=== PATIENT | female | born 1950 | race Caucasian/White ===

== ENCOUNTER 2016-11-08 11:53 | Emergency (ER) | payer BC, OTHER ==
[~2016-11-08] VITALS: Ht 180.3 cm; Wt 193.7 kg
[2016-11-08 11:53] VITALS: BP 179/88
[2016-11-08] MEDS ORDERED: MECL25CH PO (12:00)
[2016-11-08] MEDS ORDERED: METO50TA2 PO (12:00)
[2016-11-08] MEDS ORDERED: BIAX1TAB PO (12:00)
[2016-11-08] MEDS ORDERED: NORCOTAB PO (15:20)
--- NOTE | 2016-11-09 07:59 | REP ---
Right knee series: Five views. History: Pain. Findings: Five views of the right knee demonstrate an old orthopedic screw in place in the proximal tibia. There is moderate three compartment osteoarthritis with spurring and chondrocalcinosis. There is some diffuse osteopenia. No fracture or other acute bony abnormality is seen. Impression: Three compartment osteoarthritis. Chondrocalcinosis. Orthopedic screw in the proximal tibia. No acute bony abnormality. Signed by Juan Luis Song MD 11/09/2016 08:59 A
== END 2016-11-08 15:50 | disposition home or self-care (01) ==
LOC: M ED 13:01
DX: S83.91XA Sprain of unspecified site of right knee, initial encounter (principal); X58.XXXA Exposure to other specified factors, initial encounter; Y92.9 Unspecified place or not applicable; Y93.9 Activity, unspecified; Y99.9 Unspecified external cause status; M17.11 Unilateral primary osteoarthritis, right knee; M11.261 Other chondrocalcinosis, right knee; I10 Essential (primary) hypertension; Z79.899 Other long term (current) drug therapy; Z88.2 Allergy status to sulfonamides

== ENCOUNTER → 2017-10-23 | Outpatient (REF) | payer BC, OTHER | LOC: M LAB REF 13:45 | DX: N39.0 Urinary tract infection, site not specified (principal) ==

== ENCOUNTER 2017-11-06 23:36 | Emergency (ER) | payer MEDICARE, BC, OTHER ==
[2017-11-07 00:35] LABS: PROTHROMBIN TIME 13.3 SECONDS (12.4-14.5)
[2017-11-07 00:36] LABS: PARTIAL THROMBOPLASTIN TIME 24.7 SECONDS (26.8-37.9)
[2017-11-07 00:46] LABS: ANION GAP 7 MEQ/L (8-16); BLOOD UREA NITROGEN 12 MG/DL (7-18); CALCIUM LEVEL 9.1 MG/DL (8.8-10.2); CARBON DIOXIDE LEVEL 29 MEQ/L (21-32); CHLORIDE LEVEL 103 MEQ/L (98-107); CPK CREATINE PHOSPHOKINASE 30 U/L (26-192); CREATININE FOR GFR 0.81 MG/DL (0.55-1.30); FREE THYROXINE INDEX 3.4 % (1.3-4.8); GLOMERULAR FILTRATION RATE > 60.0 (>45); GLUCOSE, FASTING 163 MG/DL (70-100); POTASSIUM SERUM 3.6 MEQ/L (3.5-5.1); SODIUM LEVEL 139 MEQ/L (136-145); T UPTAKE 34 % (30-39); THYROXINE (T4) 9.9 UG/DL (4.5-12.0); TROPONIN I < 0.02 NG/ML (< 0.10)
[2017-11-07 00:49] LABS: BASO # 0.1 10^3/uL (0.0-0.2); BASO % 0.7 % (0.0-1.0); EOS # 0.2 10^3/uL (0.0-0.50); EOS % 2.4 % (0.0-3.0); HEMATOCRIT 40.7 % (36.0-47.0); HEMOGLOBIN 13.4 g/dl (12.0-15.5); IMMATURE GRANULOCYTE % 0.1 % (0-3.0); LYMPH # 1.8 10^3/uL (1.5-4.5); LYMPH % 27.6 % (24.0-44.0); MEAN CORPUSCULAR HEMOGLOBIN 30.5 pg (27.0-33.0); MEAN CORPUSCULAR HGB CONC 32.9 g/dl (32.0-36.5); MEAN CORPUSCULAR VOLUME 92.7 fl (80.0-96.0); MONO # 0.5 10^3/uL (0.0-0.8); MONO % 7.9 % (0.0-5.0); NEUTROPHILS # 4.1 10^3/uL (1.8-7.7); NEUTROPHILS % 61.3 % (36.0-66.0); PLATELET COUNT, AUTOMATED 208 10^3/uL (150-450); RED BLOOD COUNT 4.39 10^6/uL (4.00-5.40); RED CELL DISTRIBUTION WIDTH 12.1 % (11.5-14.5); WHITE BLOOD COUNT 6.7 10^3/uL (4.0-10.0)
[2017-11-07 00:51] LABS: CK-MB VALUE MASS < 1.0 NG/ML (<3.6); MB/CK RELATIVE INDEX 3.33 (< OR =4)
== END 2017-11-07 02:22 | disposition home or self-care (01) ==
LOC: M ED 23:36
DX: R00.2 Palpitations (principal); R94.31 Abnormal electrocardiogram [ECG] [EKG]; E66.01 Morbid (severe) obesity due to excess calories; I10 Essential (primary) hypertension; Z87.891 Personal history of nicotine dependence; Z79.899 Other long term (current) drug therapy; Z91.012 Allergy to eggs; Z88.1 Allergy status to other antibiotic agents; Z88.2 Allergy status to sulfonamides; Z91.02 Food additives allergy status
CPT/HCPCS: 93005

== ENCOUNTER → 2018-11-16 | Outpatient (CLI) | payer MEDICARE, BC, OTHER ==
[~2018-11-16] MED LIST: BIAX500T14 PO; HYDR-3715 PO; MECL1CHW PO; METO50TA7 PO
--- NOTE | 2018-11-16 14:07 | REP ---
Clinical: Acute bronchitis type symptoms . Comparison: 03/05/2015 . Technique: PA and lateral. Findings: The mediastinum and cardiac silhouette are normal. The lung [place] are clear and without acute consolidation, effusion, or pneumothorax. The skeletal structures are intact and normal. Impression: 1. No acute cardiopulmonary process. Electronically Signed by Nigel Phillips MD 11/16/2018 01:59 P
== END ==
LOC: M WUC 13:43
PROVIDERS: ATTEND Physician Assistant
DX: J20.9 Acute bronchitis, unspecified (principal)

== ENCOUNTER → 2019-10-26 | Outpatient (CLI) | payer MEDICARE, BC, OTHER | LOC: M LABSMTC 10:48 | PROVIDERS: ATTEND Family Medicine | DX: Z11.59 Encounter for screening for other viral diseases (principal) | CPT/HCPCS: C9803; U0003 ==

== ENCOUNTER 2021-05-04 21:17 | Emergency (ER) | payer MEDICARE, BC, OTHER ==
[~2021-05-04] VITALS: Ht 180.3 cm; Wt 190.9 kg
--- OUTSIDE RECORDS SUMMARY | 2021-05-04 21:25 | CCD ---
Author Author [facility] Address Unknown Phone Unavailable Support Name Relationship Address Phone UE Next Of Kin Unknown Unavailable Chilo DE LEON Next Of Kin [address] [place] [address] HALEY Chilo MONAE Next Of Kin [address] [place] [address] Re-disclosure Warning The records that you are about to access may contain information from federally-assisted alcohol or drug abuse programs. If such information is present, then the following federally mandated warning applies: This information has been disclosed to you from records protected by federal confidentiality rules (42 CFR part 2). The federal rules prohibit you from making any further disclosure of this information unless further disclosure is expressly permitted by the written consent of the person to whom it pertains or as otherwise permitted by 42 CFR part 2. A general authorization for the release of medical or other information is NOT sufficient for this purpose. The Federal rules restrict any use of the information to criminally investigate or prosecute any alcohol or drug abuse patient.The records that you are about to access may contain highly sensitive health information, the redisclosure of which is protected by Article 27-F of the [facility] Public Health law. If you continue you may have access to information: Regarding HIV / AIDS; Provided by facilities licensed or operated by the [facility] Office of Mental Health; or Provided by the [facility] Office for People With Developmental Disabilities. If such information is present, then the following [facility] mandated warning applies: This information has been disclosed to you from confidential records which are protected by state law. State law prohibits you from making any further disclosure of this information without the specific written consent of the person to whom it pertains, or as otherwise permitted by law. Any unauthorized further disclosure in violation of state law may result in a fine or halfway sentence or both. A general authorization for the release of medical or other information is NOT sufficient authorization for further disc losure. Family History Family Member Name Family Member Gender Family Member Status Date o f Status Description Data Source(s) Unknown Unknown Problem MEDENT ([facility]) father Unknown Male Problem MEDENT ([facility]) Unknown Female Medications Medication Brand Name Start Date Product Form Dose Route Admi nistrative Instructions Pharmacy Instructions Status Indications Reaction Description Data Source(s) Meclizine Hydrochloride 25 MG Oral Tablet MECLIZINE HCL 06/22/2020 12:00:00 AM EST tablet 60 TAKE ONE TABLET BY MOUTH TWI CE A DAY TAKE ONE TABLET BY MOUTH TWICE A DAY SOLD: 06/25/2020 Vinh Wilson s Insurance Providers Payer name Policy type / Coverage type Policy ID Covered republican ID Covered republican's relationship to garcia Policy Garcia Plan Information MEDICARE [id number] SP [id number] [facility] [id number] [facility] [id number] [facility] [id number] [facility] [id number] Family Dependent [id number] Medicare Natl Gov't Servi Medicare Primary [id number] Self [id number] [facility] [id number] Family Dependent [id number] Medicare Natl Gov't Servi Medicare Primary [id number] Self [id number] [facility] [place] Commercial [id number] Family Dependent [id number] Medicare Natl Gov't Servi Medicare Primary [id number] 2.840.1.296364.3.227.99.1767.28398.0 Self [id number] [facility] Commercial [id number] 2.840.1.502912.3.227.99.1767.35683.0 Family Dependent [id number] Medicare Natl Gov't Servi Medicare Primary [id number] 2.840.1.362038.3.227.99.1767.50348.0 Self [id number] [facility] [id number] .0.1.861028.3.227.99.1767.18615.0 Family Dependent [id number] Medicare Natl Gov't Servi Medicare Primary [id number]22.0 Self [id number] [facility] [id number] 20.1.926160.3.227.99.1767.89374.0 Family Dependent [id number] Medicare Natl Gov't Servi Medicare Primary [id number] 20.1.917595.3.227.99.1767.40549.0 Self [id number] [facility] [id number]9.1767.30636.0 Family Dependent [id number] Medicare Natl Gov't Servi Medicare Primary [id number] 07.10.830.1.328839.3.227.99.1767.13213.0 Self [id number] MEDICARE [id number] SP [id number] [facility] [id number] 07.10.830.1.002711.3.227.99.1767.93734.0 Family Dependent [id number] Medicare Natl Gov't Servi Medicare Primary [id number] 07.10.830.1.354873.3.227.99.1767.21002.0 Self [id number] [facility] [id number] 07.10.830.1.278265.3.227.99.1767.26010.0 Family Dependent [id number] Medicare Natl Gov't Servi Medicare Primary [id number] 2.16.840.1.263354.3.227.99.1767.80442.0 Self [id number] [facility] [place] Medigap Part B [id number] 2.16.840.1.144497.3.227.99.1767.26821.0 Family Dependent [id number] Medicare Natl Gov't Servi Medicare Primary [id number] 2.16.840.1.678543.3.227.99.1767.34703.0 Self [id number] [facility] [place] Medigap Part B [id number].1767.37671.0 Family Dependent [id number] Medicare Natl Gov't Servi Medicare Primary [id number] 2.840.1.978694.3.227.99.1767.54339.0 Self [id number] [facility] [place] Medigap Part B [id number] 2.840.1.269997.3.227.99.1767.68998.0 Family Dependent [id number] Medicare Natl Gov't Servi Medicare Primary [id number].1767.28874.0 Self [id number] [facility] [id number] [facility] 89 [id number] [place] [facility] Health Maintenance Organization (HMO) [id number] Family Dependent [facility] [place] Commercial [id number] Family Depende [facility] Health Maintenance Organization (HMO) [id number] Family Dependent [facility]IRE ([facility]) P [id number] P [id number] Problems, Conditions, and Diagnoses No Information Surgeries/Procedures No Information Results No Information Social History No Information
[2021-05-04 22:24] LABS: BASO % 0.5 % (0.0-1.0); EOS # 0.2 10^3/uL (0.0-0.5); HEMATOCRIT 38.6 % (36.0-47.0); HEMOGLOBIN 12.3 g/dl (12.0-15.5); LYMPH # 1.7 10^3/uL (1.5-5.0); LYMPH % 22.7 % (24.0-44.0); MEAN CORPUSCULAR HEMOGLOBIN 29.2 pg (27.0-33.0); MEAN CORPUSCULAR HGB CONC 31.9 g/dl (32.0-36.5); MEAN CORPUSCULAR VOLUME 91.7 fl (80.0-96.0); MONO # 0.6 10^3/uL (0.0-0.8); MONO % 8.1 % (2.0-8.0); NEUTROPHILS # 5.1 10^3/uL (1.5-8.5); NEUTROPHILS % 66.2 % (36.0-66.0); PLATELET COUNT, AUTOMATED 239 10^3/uL (150-450); RED BLOOD COUNT 4.21 10^6/uL (4.00-5.40); WHITE BLOOD COUNT 7.6 10^3/uL (4.0-10.0)
[2021-05-04 22:44] LABS: INR 0.92; PARTIAL THROMBOPLASTIN TIME 28.9 SECONDS (25.9-37.0); PROTHROMBIN TIME 12.8 SECONDS (12.7-14.5)
[2021-05-04 22:48] LABS: ALBUMIN 3.2 GM/DL (3.2-5.2); BILIRUBIN,DIRECT 0.1 MG/DL (0.0-0.2); BILIRUBIN,TOTAL 0.5 MG/DL (0.2-1.0); MAGNESIUM LEVEL 2.2 MG/DL (1.8-2.4); TOTAL PROTEIN 7.1 GM/DL (6.4-8.2)
--- NOTE | 2021-05-04 23:20 | REPVR ---
PROCEDURE INFORMATION: Exam: XR Chest Exam date and time: 05/04/2021 10:27 PM Age: 70 years old Clinical indication: Other: Chest pain TECHNIQUE: Imaging protocol: XR of the chest. Views: 1 view. COMPARISON: CR CHEST 2 VIEW 11/16/2018 1:54 PM. Prior report has not been made available for review at the time of this emergent interpretation, however was requested. FINDINGS: LUNGS and PLEURAL SPACE: The right diaphragm is slightly elevated compared to the left. Lung volumes are low. There are elevated perihilar vascular and reticular lung markings, new compared to the prior study a consistent with mild pulmonary vascular congestion/edema. No evidence of peribronchial thickening. There is no consolidation, pneumothorax, or pleural effusion. No evidence of pulmonary vascular redistribution or overt edema. - MEDIASTINUM: There is no mediastinal shift or widening. - CARDIAC SILHOUETTE: Cardiac size is borderline. - BONY THORAX: No acute findings are seen. - IMPRESSION: Mild pulmonary vascular congestion/edema. Findings discussed above. Electronically signed by: Barrera Valdes On 05/04/2021 23:19:44 PM
[2021-05-04 23:57] VITALS: BP 153/78
--- OUTSIDE RECORDS SUMMARY | 2021-05-05 00:10 | CCD ---
Author Author [facility] Address Unknown Phone Unavailable Support Name Relationship Address Phone UE Next Of Kin Unknown Unavailable Chilo DE LEON Next Of Kin [address] [place] [address] HALEYChilo MONAE Next Of Kin [address] [place] [address] Re-disclosure Warning The records that you are [...] is protected by Article 27-F of the [facility] Public Health law. If you continue you may have access to information: Regarding HIV / AIDS; Provided by facilities licensed or operated by the [facility] Office of Mental Health; or Provided by the [facility] Office for People With Developmental Disabilities. If such information is present, then the following [facility] mandated warning applies: This information [...] law may result in a fine or prison sentence or both. A general authorization for [...] type / Coverage type Policy ID Covered alliance party ID Covered alliance party's relationship to garcia Policy Garcia Plan Information MEDICARE [id number] SP [id number] [facility] [id number] [facility] [id number] [facility] [id number] 2 [id number] [facility] [id number] Family Dependent [id number] Medicare Natl Gov't Servi Medicare Primary [id number] Self [id number] [facility] [id number] Family Dependent [id number] Medicare Natl Gov't Servi Medicare Primary [id number] Self [id number] [facility] [place] Commercial [id number]0881.0 Family Dependent [id number] Medicare Natl Gov't Servi Medicare Primary [id number] 2.840.1.244436.3.227.99.1767.01692.0 Self [id number] [facility] Commercial [id number] 2.840.1.880788.3.227.99.1767.15046.0 Family Dependent [id number] Medicare Natl Gov't Servi Medicare Primary [id number] 2.840.1.805448.3.227.99.1767.76040.0 Self [id number] [facility] [id number] .0.1.396708.3.227.99.1767.50699.0 Family Dependent [id number] Medicare Natl Gov't Servi Medicare Primary [id number] .0.1.930001.3.227.99.1767.56567.0 Self [id number] [facility] B [id number] 20.1.417547.3.227.99.1767.54449.0 Family Dependent [id number] Medicare Natl Gov't Servi Medicare Primary [id number] 20.1.335967.3.227.99.1767.63192.0 Self [id number] [facility] [id number] 07.10.830.1.692396.3.227.99.1767.28074.0 Family Dependent [id number] Medicare Natl Gov't Servi Medicare Primary [id number] 07.10.830.1.105592.3.227.99.1767.27752.0 Self [id number] MEDICARE [id number] SP [id number] A [facility] [id number] 07.10.830.1.360692.3.227.99.1767.82616.0 Family Dependent [id number] Medicare Natl Gov't Servi Medicare Primary [id number] 07.10.830.1.445230.3.227.99.1767.45080.0 Self [id number] [facility] [id number] 07.10.830.1.566842.3.227.99.1767.85009.0 Family Dependent [id number] Medicare Natl Gov't Servi Medicare Primary [id number] 2.16.840.1.549211.3.227.99.1767.35630.0 Self [id number] [facility] [place] Medigap Part B [id number] 2.16.840.1.484009.3.227.99.1767.80382.0 Family Dependent [id number] Medicare Natl Gov't Servi Medicare Primary [id number] 2.16.840.1.816279.3.227.99.1767.41762.0 Self [id number] [facility] [place] Medigap Part B [id number] 2.16840.1.841473.3.227.99.1767.47731.0 Family Dependent [id number] Medicare Natl Gov't Servi Medicare Primary [id number] 2.840.1.140083.3.227.99.1767.09441.0 Self [id number] [facility] [place] Medigap Part B [id number] 2.840.1.148653.3.227.99.1767.87223.0 Family Dependent [id number] Medicare Natl Gov't Servi Medicare Primary [id number] 2.16840.1.311106.3.227.99.1767.82211.0 Self [id number] [facility] [id number] [facility] [id number] [place] [facility] Health Maintenance Organization (HMO) [id number] Family Dependent [facility] [place] Commercial [id number] Family Depende [facility] Health Maintenance Organization (HMO) [id number] Family Dependent [facility] ([facility]) P [id number] P [id number] Problems, Conditions, and Diagnoses No Information Surgeries/Procedures No Information Results No Information Social History No Information
[2021-05-05] MEDS ORDERED: METO1TAB87 PO (00:25)
[2021-05-05] MEDS ORDERED: LISI10TA22 PO (00:25)
[2021-05-05] MEDS ORDERED: METOPROLOL TART 25 MG TABLET PO ONE (00:50)
--- NOTE | 2021-05-05 05:34 | ECGEPIP ---
[facility] - ED Test Date: 2021-05-04 Pat Name: MONAE DE LEON Department: Room: - Gender: Female Collar Fuser: STONEY : 1950 Requested By: MIGUEL Turner Order Number: [id number] Reading MD: Bala Macias Measurements Intervals [place] Rate: 64 P: 59 UT: 150 QRS: 26 QRSD: 86 T: 38 QT: 400 QTc: 412 Interpretive Statements Sinus rhythm with marked sinus arrhythmia Nonspecific ST and T wave abnormality SIMILAR TO 11/06/17 Electronically Signed on 05-05-2021 5:33:43 EST by Bala Macias
== END 2021-05-05 01:03 | disposition home or self-care (01) ==
LOC: M ED 21:17
DX: R00.1 Bradycardia, unspecified (principal); R00.2 Palpitations; I10 Essential (primary) hypertension; Z79.899 Other long term (current) drug therapy; Z88.2 Allergy status to sulfonamides; Z88.8 Allergy status to other drugs, medicaments and biological substances; Z91.012 Allergy to eggs; Z87.891 Personal history of nicotine dependence

== ENCOUNTER → 2021-05-20 | Outpatient (CLI) | payer MEDICARE, BC, OTHER ==
[~2021-05-20] MED LIST changes: +LISI10TA22 PO; +METO1TAB87 PO
== END ==
LOC: M EKG 13:11
PROVIDERS: ATTEND Family Medicine
DX: R00.2 Palpitations (principal)

== ENCOUNTER 2023-01-22 13:26 | Observation (INO) | payer MEDICARE, BC, OTHER ==
[2023-01-22] VITALS (8 sets, daily range): BP systolic 141–155; BP diastolic 65–88; TEMP 97.7–98.2; O2SAT 97–99
[~2023-01-22] VITALS: Ht 180.3 cm; Wt 198.6 kg
[2023-01-22] MEDS ORDERED: LOPR1TAB6 PO (13:45)
[2023-01-22 14:54] LABS: BASO % 0.4 % (0.0-1.0); EOS # 0.1 10^3/uL (0.0-0.5); EOS % 0.9 % (0.0-3.0); HEMATOCRIT 24.9 % (36.0-47.0); LYMPH # 0.9 10^3/uL (1.5-5.0); LYMPH % 11.5 % (24.0-44.0); MEAN CORPUSCULAR HEMOGLOBIN 20.5 pg (27.0-33.0); MEAN CORPUSCULAR HGB CONC 27.3 g/dl (32.0-36.5); MEAN CORPUSCULAR VOLUME 75.2 fl (80.0-96.0); MONO # 0.5 10^3/uL (0.0-0.8); MONO % 6.5 % (2.0-8.0); NEUTROPHILS # 6.5 10^3/uL (1.5-8.5); NEUTROPHILS % 79.4 % (36.0-66.0); PLATELET COUNT, AUTOMATED 300 10^3/uL (150-450); RED BLOOD COUNT 3.31 10^6/uL (4.00-5.40); WHITE BLOOD COUNT 8.2 10^3/uL (4.0-10.0)
[2023-01-22 15:05] LABS: HEMOGLOBIN 6.8 g/dl (12.0-15.5)
[2023-01-22 15:06] LABS: INR 1.34; PROTHROMBIN TIME 16.2 SECONDS (12.5-14.5)
[2023-01-22 15:07] LABS: PARTIAL THROMBOPLASTIN TIME 26.9 SECONDS (24.8-34.2)
[2023-01-22 15:19] LABS: LIPASE 34 U/L (12-53)
[2023-01-22 15:21] LABS: ALBUMIN 3.3 G/DL (3.2-5.2); ALKALINE PHOSPHATASE 81 U/L (46-116); ALT/SGPT 10 U/L (7.0-40); AST/SGOT 9 U/L (<34); BILIRUBIN,DIRECT 0.3 MG/DL (<0.4); BILIRUBIN,TOTAL 0.7 MG/DL (0.3-1.2); BLOOD UREA NITROGEN 8 MG/DL (9-23); CALCIUM LEVEL 8.6 MG/DL (8.3-10.6); CARBON DIOXIDE LEVEL 27 MMOL/L (20-31); CHLORIDE LEVEL 90 MMOL/L (98-107); CK-MB VALUE MASS 1.2 NG/ML (<3.6); CPK CREATINE PHOSPHOKINASE 92 U/L (34-145); ERYTHROCYTE SEDIMENTATION RATE 47 mm/hr (0-30); GLOMERULAR FILTRATION RATE > 60.0 (>39); GLUCOSE, FASTING 105 MG/DL (74-106); POTASSIUM SERUM 4.7 MMOL/L (3.5-5.1); SODIUM LEVEL 124 MMOL/L (136-145); TOTAL PROTEIN 6.9 G/DL (5.7-8.2)
[2023-01-22 15:22] LABS: THYROID STIMULATING HORMONE 1.451 uIU/ML (0.55-4.78)
[2023-01-22 15:23] LABS: FREE T4 1.15 NG/DL (0.89-1.76)
[2023-01-22] MEDS ORDERED: ALBUTEROL 90 MCG/ACT 8GM HFA INHALER INH ONE (15:30)
[2023-01-22 16:33] LABS: RSV AMPLIFICATION NEGATIVE (NEGATIVE)
[2023-01-22] MEDS ORDERED: GUAI400T9 PO (16:53)
[2023-01-22] MEDS ORDERED: MECL-86 PO (16:53)
[2023-01-22] MEDS ORDERED: ALBU2.5V10 NEB (16:53)
[2023-01-22] MEDS ORDERED: METO50TA7 PO (16:57)
[2023-01-22] MEDS ORDERED: NS 500 ML IV ONE (17:00)
[2023-01-22] MEDS ORDERED: MED REC IN PROGRESS XX SCH (17:05)
[2023-01-22] MEDS ORDERED: ISOVUE-370 76% 100ML VIAL As Ordered ONE (17:05)
[2023-01-22] MEDS ORDERED: HOME MED LIST COMPLETE! XX SCH (17:05)
[2023-01-22 17:19] LABS: CK-MB VALUE MASS 1.5 NG/ML (<3.6)
[2023-01-22 17:21] LABS: MB/CK RELATIVE INDEX 1.63 (< OR =4)
[2023-01-22 18:57] LABS: BASO % 0.4 % (0.0-1.0); EOS # 0.1 10^3/uL (0.0-0.5); EOS % 0.6 % (0.0-3.0); HEMATOCRIT 24.4 % (36.0-47.0); LYMPH # 1.3 10^3/uL (1.5-5.0); LYMPH % 15.4 % (24.0-44.0); MEAN CORPUSCULAR HEMOGLOBIN 20.4 pg (27.0-33.0); MEAN CORPUSCULAR VOLUME 75.5 fl (80.0-96.0); MONO # 0.7 10^3/uL (0.0-0.8); MONO % 8.2 % (2.0-8.0); NEUTROPHILS # 6.1 10^3/uL (1.5-8.5); NEUTROPHILS % 74.7 % (36.0-66.0); PLATELET COUNT, AUTOMATED 277 10^3/uL (150-450); RED BLOOD COUNT 3.23 10^6/uL (4.00-5.40); WHITE BLOOD COUNT 8.2 10^3/uL (4.0-10.0)
[2023-01-22 19:06] LABS: HEMOGLOBIN 6.6 g/dl (12.0-15.5)
[2023-01-22] MEDS ORDERED: ALBUTEROL SULFATE 2.5MG/0.5ML INH NEB SOLN NEB PRN (19:45)
[2023-01-22] MEDS ORDERED: ACETAMINOPHEN TAB 650MG DOSE (2X325MG) PO PRN (19:45)
[2023-01-22] MEDS ORDERED: methylPREDNISolone 40MG 1ML VIAL IV ONE (19:45)
[2023-01-22] MEDS ORDERED: MECLIZINE 25 MG TABLET PO PRN (19:50)
[2023-01-22 20:10] LABS: PERCENT SATURATION 3.2 % (13.2-45.0)
[2023-01-22 20:12] LABS: FERRITIN 4.5 NG/ML (7.3-270.7); FOLATE 12.1 NG/ML (>5.4)
[2023-01-22] MEDS: IPRATROPIUM 0.5MG/ALBUTEROL 2.5MG INH SOL UD 3ML (DUONEB) NEB SCH (20:16)
[2023-01-22] MEDS: NS 1,000 ML IV SCH (21:27)
[2023-01-22] MEDS: guaiFENesin ER 600 MG TAB PO SCH (21:28)
[2023-01-22] MEDS: PANTOPRAZOLE 40MG VIAL IV SCH (21:28)
[2023-01-22] MEDS: PREPARATION H SUPP (HEMORRHOID) PR SCH (22:38)
[2023-01-23] VITALS (8 sets, daily range): BP systolic 107–159; BP diastolic 55–95; TEMP 97.4–98.1; O2SAT 94–97
[2023-01-23 00:11] LABS: BLOOD UREA NITROGEN 8 MG/DL (9-23); CALCIUM LEVEL 8.7 MG/DL (8.3-10.6); CARBON DIOXIDE LEVEL 24 MMOL/L (20-31); CHLORIDE LEVEL 93 MMOL/L (98-107); CREATININE FOR GFR 0.56 MG/DL (0.55-1.30); GLOMERULAR FILTRATION RATE > 60.0 (>39); GLUCOSE, FASTING 116 MG/DL (74-106); POTASSIUM SERUM 4.5 MMOL/L (3.5-5.1); SODIUM LEVEL 125 MMOL/L (136-145)
[2023-01-23] MEDS: IPRATROPIUM 0.5MG/ALBUTEROL 2.5MG INH SOL UD 3ML (DUONEB) NEB SCH ×3 (01:26→13:14)
[2023-01-23 03:01] LABS: HEMATOCRIT 29.1 % (36.0-47.0); HEMOGLOBIN 8.3 g/dl (12.0-15.5)
[2023-01-23 03:17] LABS: APPEARANCE, URINE CLEAR (CLEAR); BACTERIA, URINE AUTO 1+ (NEGATIVE); BILIRUBIN, URINE AUTO NEGATIVE (NEGATIVE); BLOOD, URINE BLOOD 2+ (NEGATIVE); COLOR, URINE YELLOW (YELLOW); GLUCOSE, URINE (UA) AUTO NEGATIVE (NEGATIVE); KETONE, URINE AUTO NEGATIVE (NEGATIVE); LEUKOCYTE ESTERASE, URINE AUTO TRACE (NEGATIVE); NITRITE, URINE AUTO POSITIVE (NEGATIVE); PROTEIN, URINE AUTO NEGATIVE (NEGATIVE); RBC, URINE AUTO 0 /HPF (0-3); SPECIFIC GRAVITY URINE AUTO 1.011 (1.002-1.035); SQUAMOUS EPITHELIAL CELL UR AU 0 /HPF (0-6); UROBILINOGEN, URINE AUTO 0.2 mg/dL (0.0-2.0); WBC, URINE AUTO 0 /HPF (0-3)
[2023-01-23] MEDS: NS 1,000 ML IV SCH (05:28)
[2023-01-23 06:13] LABS: HEMOGLOBIN 8.3 g/dl (12.0-15.5); MEAN CORPUSCULAR HEMOGLOBIN 21.6 pg (27.0-33.0); MEAN CORPUSCULAR HGB CONC 28.6 g/dl (32.0-36.5); MEAN CORPUSCULAR VOLUME 75.3 fl (80.0-96.0); PLATELET COUNT, AUTOMATED 270 10^3/uL (150-450); RED BLOOD COUNT 3.85 10^6/uL (4.00-5.40); WHITE BLOOD COUNT 7.3 10^3/uL (4.0-10.0)
[2023-01-23 06:44] LABS: ALBUMIN 3.4 G/DL (3.2-5.2); ALKALINE PHOSPHATASE 86 U/L (46-116); ALT/SGPT 10 U/L (7.0-40); AST/SGOT 14 U/L (<34); BILIRUBIN,TOTAL 0.9 MG/DL (0.3-1.2); BLOOD UREA NITROGEN 7 MG/DL (9-23); CARBON DIOXIDE LEVEL 23 MMOL/L (20-31); CHLORIDE LEVEL 96 MMOL/L (98-107); CREATININE FOR GFR 0.56 MG/DL (0.55-1.30); GLOMERULAR FILTRATION RATE > 60.0 (>39); GLUCOSE, FASTING 145 MG/DL (74-106); MAGNESIUM LEVEL 1.8 MG/DL (1.8-2.4); POTASSIUM SERUM 4.7 MMOL/L (3.5-5.1); SODIUM LEVEL 128 MMOL/L (136-145); TOTAL PROTEIN 6.8 G/DL (5.7-8.2)
[2023-01-23] MEDS: guaiFENesin ER 600 MG TAB PO SCH ×3 (09:00→10:23)
[2023-01-23] MEDS ORDERED: FERRIC CARBOXYMALTOSE INJ 750 MG, VIAL MATE ADAPTER 1 EACH in NS 250 ML IV ONE (09:00)
[2023-01-23] MEDS ORDERED: FUROSEMIDE 20MG/2ML VIAL IV ONE (10:00)
[2023-01-23] MEDS: PANTOPRAZOLE 40MG VIAL IV SCH (10:07)
[2023-01-23] MEDS: PREPARATION H SUPP (HEMORRHOID) PR SCH (10:08)
[2023-01-23] MEDS ORDERED: METOPROLOL TART 50 MG TAB PO SCH (12:00)
[2023-01-23 15:52] LABS: BASO % 0.1 % (0.0-1.0); HEMATOCRIT 30.1 % (36.0-47.0); HEMOGLOBIN 8.5 g/dl (12.0-15.5); LYMPH # 0.8 10^3/uL (1.5-5.0); LYMPH % 10.7 % (24.0-44.0); MEAN CORPUSCULAR HEMOGLOBIN 22.1 pg (27.0-33.0); MEAN CORPUSCULAR HGB CONC 28.2 g/dl (32.0-36.5); MEAN CORPUSCULAR VOLUME 78.2 fl (80.0-96.0); MONO # 0.6 10^3/uL (0.0-0.8); MONO % 8.2 % (2.0-8.0); NEUTROPHILS # 6.2 10^3/uL (1.5-8.5); NEUTROPHILS % 79.3 % (36.0-66.0); PLATELET COUNT, AUTOMATED 273 10^3/uL (150-450); RED BLOOD COUNT 3.85 10^6/uL (4.00-5.40); WHITE BLOOD COUNT 7.8 10^3/uL (4.0-10.0)
[2023-01-23 16:14] LABS: BLOOD UREA NITROGEN 8 MG/DL (9-23); CALCIUM LEVEL 8.8 MG/DL (8.3-10.6); CARBON DIOXIDE LEVEL 25 MMOL/L (20-31); CHLORIDE LEVEL 98 MMOL/L (98-107); GLOMERULAR FILTRATION RATE > 60.0 (>39); GLUCOSE, FASTING 132 MG/DL (74-106); POTASSIUM SERUM 4.2 MMOL/L (3.5-5.1); SODIUM LEVEL 131 MMOL/L (136-145)
[2023-01-23] MEDS ORDERED: HEMO1SUP10 PR (16:25)
[2023-01-23] MEDS ORDERED: FERR29TA PO (16:32)
[2023-01-23 20:16] LABS: CREATININE,RANDOM URINE 17.8 MG/DL
== END 2023-01-23 18:26 | disposition home or self-care (01) ==
LOC: M ED 13:26 → M ED INP 19:41 → INTOOBSV 19:41 → ENRESERV 01-23 01:43 → M PCU 01-23 02:56
PROVIDERS: ADMIT Internal Medicine; ATTEND Internal Medicine
DX: D50.9 Iron deficiency anemia, unspecified (principal); E87.1 Hypo-osmolality and hyponatremia; J45.901 Unspecified asthma with (acute) exacerbation; I10 Essential (primary) hypertension; K62.5 Hemorrhage of anus and rectum; R06.02 Shortness of breath; R05.9 Cough, unspecified; R53.83 Other fatigue; R53.81 Other malaise; R53.1 Weakness; Z88.8 Allergy status to other drugs, medicaments and biological substances; Z88.2 Allergy status to sulfonamides; Z91.012 Allergy to eggs; Z79.899 Other long term (current) drug therapy
CPT/HCPCS: 36415; 36430; 71046; 73502; 74177; 80048; 80053; 80076; 81001; 82550; 82553; 82570; 82607; 82728; 82746; 83550; 83690; 83735; 83880; 83935; 84300; 84439; 84443; 84484; 85014; 85018; 85025; 85027; 85610; 85652; 85730; 86140; 86850; 86900; 86901; 86920; 87040; 87486; 87581; 87631; 87633; 87798; 93005; 93041; 94640; 94664; 94760; 96361; 96374; 96375; 96376; 97116; 97161; 97165; 97530; 99285; C9113; G0378; J1439; J1940; J2920; P9016; Q9967

== ENCOUNTER → 2023-01-27 | Outpatient (CLI) | payer MEDICARE, BC, OTHER ==
[~2023-01-27] MED LIST changes: +ALBU2.5V10 NEB; +FERR29TA PO; +GUAI400T9 PO; +HEMO1SUP10 PR; +LOPR1TAB6 PO; +MECL-86 PO
[2023-01-27 10:12] LABS: BLOOD UREA NITROGEN 8 MG/DL (9-23); CALCIUM LEVEL 8.5 MG/DL (8.3-10.6); CARBON DIOXIDE LEVEL 29 MMOL/L (20-31); CHLORIDE LEVEL 100 MMOL/L (98-107); CREATININE FOR GFR 0.62 MG/DL (0.55-1.30); GLOMERULAR FILTRATION RATE > 60.0 (>39); GLUCOSE, FASTING 103 MG/DL (74-106); POTASSIUM SERUM 4.4 MMOL/L (3.5-5.1); SODIUM LEVEL 137 MMOL/L (136-145)
== END ==
LOC: M LAB 08:30
PROVIDERS: ATTEND Internal Medicine
DX: E87.1 Hypo-osmolality and hyponatremia (principal)

== ENCOUNTER → 2023-02-25 | Outpatient (CLI) | payer MEDICARE, BC, OTHER ==
[2023-02-25 15:02] LABS: HEMATOCRIT 36.5 % (36.0-47.0); HEMOGLOBIN 10.6 g/dl (12.0-15.5); MEAN CORPUSCULAR HEMOGLOBIN 25.2 pg (27.0-33.0); MEAN CORPUSCULAR VOLUME 86.9 fl (80.0-96.0); PLATELET COUNT, AUTOMATED 304 10^3/uL (150-450); WHITE BLOOD COUNT 7.1 10^3/uL (4.0-10.0)
== END ==
LOC: M LAB 14:47
PROVIDERS: ATTEND Surgery
DX: D50.9 Iron deficiency anemia, unspecified (principal)

== ENCOUNTER 2023-04-08 19:26 | Inpatient (IN) | payer MEDICARE, BC, OTHER ==
[~2023-04-08] VITALS: Ht 180.3 cm; Wt 193.0 kg
[2023-04-08] MEDS ORDERED: METOPROLOL TART 25 MG TABLET PO SCH (21:00)
[2023-04-08 21:20] LABS: BASO % 0.6 % (0.0-1.0); EOS # 0.1 10^3/uL (0.0-0.5); HEMATOCRIT 31.5 % (36.0-47.0); HEMOGLOBIN 9.2 g/dl (12.0-15.5); LYMPH # 1.4 10^3/uL (1.5-5.0); LYMPH % 19.9 % (24.0-44.0); MEAN CORPUSCULAR HEMOGLOBIN 24.9 pg (27.0-33.0); MEAN CORPUSCULAR HGB CONC 29.2 g/dl (32.0-36.5); MEAN CORPUSCULAR VOLUME 85.1 fl (80.0-96.0); MONO # 0.6 10^3/uL (0.0-0.8); MONO % 8.3 % (2.0-8.0); NEUTROPHILS # 4.8 10^3/uL (1.5-8.5); NEUTROPHILS % 68.6 % (36.0-66.0); PLATELET COUNT, AUTOMATED 294 10^3/uL (150-450)
[2023-04-08] MEDS ORDERED: MED REC IN PROGRESS XX SCH (21:20)
[2023-04-08 21:35] LABS: INR 1.07; PARTIAL THROMBOPLASTIN TIME 23.8 SECONDS (24.8-34.2); PROTHROMBIN TIME 13.6 SECONDS (12.5-14.5)
[2023-04-08 21:44] LABS: LIPASE 33 U/L (12-53)
[2023-04-08 21:45] LABS: CK-MB VALUE MASS < 1.0 NG/ML (<3.6)
[2023-04-08 21:47] LABS: ALBUMIN 3.3 G/DL (3.2-5.2); ALKALINE PHOSPHATASE 82 U/L (46-116); ALT/SGPT 12 U/L (7.0-40); AST/SGOT 15 U/L (<34); BILIRUBIN,DIRECT 0.2 MG/DL (<0.4); BILIRUBIN,TOTAL 0.4 MG/DL (0.3-1.2); BLOOD UREA NITROGEN 11 MG/DL (9-23); CALCIUM LEVEL 8.7 MG/DL (8.3-10.6); CARBON DIOXIDE LEVEL 26 MMOL/L (20-31); CHLORIDE LEVEL 102 MMOL/L (98-107); CPK CREATINE PHOSPHOKINASE 39 U/L (34-145); CREATININE FOR GFR 0.61 MG/DL (0.55-1.30); GLOMERULAR FILTRATION RATE > 60.0 (>39); GLUCOSE, FASTING 108 MG/DL (74-106); MB/CK RELATIVE INDEX 2.56 (< OR =4); POTASSIUM SERUM 4.6 MMOL/L (3.5-5.1); SODIUM LEVEL 136 MMOL/L (136-145); TOTAL PROTEIN 6.8 G/DL (5.7-8.2)
[2023-04-08 22:00] LABS: RSV AMPLIFICATION NEGATIVE (NEGATIVE)
[2023-04-08] MEDS ORDERED: METO50TA7 PO ×2 (22:05)
[2023-04-08] MEDS ORDERED: PREP1SUP2 PR (22:05)
[2023-04-08] MEDS ORDERED: HOME MED LIST COMPLETE! XX SCH (22:15)
[2023-04-08] MEDS ORDERED: ALBUTEROL SULFATE 2.5MG/0.5ML INH NEB SOLN NEB PRN (23:35)
[2023-04-08] MEDS ORDERED: MECLIZINE 25 MG TABLET PO PRN (23:35)
[2023-04-08] MEDS ORDERED: PANTOPRAZOLE 40MG VIAL IV SCH (23:45)
[2023-04-08] MEDS ORDERED: GLUCOSE 4GM CHEW TABLET PO PRN (23:50)
[2023-04-08] MEDS ORDERED: GLUCAGON INJ 1MG VIAL SC PRN (23:50)
[2023-04-08] MEDS ORDERED: DEXTROSE 50% 50ML SYRINGE IV PRN (23:50)
[2023-04-09] VITALS (7 sets, daily range): BP systolic 119–172; BP diastolic 59–85; TEMP 96.4–97.3; O2SAT 95–98
[2023-04-09] MEDS: NS 1,000 ML IV SCH ×2 (00:07→14:25)
[2023-04-09 03:09] LABS: HEMATOCRIT 27.7 % (36.0-47.0); HEMOGLOBIN 8.3 g/dl (12.0-15.5); MEAN CORPUSCULAR HEMOGLOBIN 25.2 pg (27.0-33.0); MEAN CORPUSCULAR VOLUME 84.2 fl (80.0-96.0); PLATELET COUNT, AUTOMATED 242 10^3/uL (150-450); RED BLOOD COUNT 3.29 10^6/uL (4.00-5.40); WHITE BLOOD COUNT 7.7 10^3/uL (4.0-10.0)
[2023-04-09 03:38] LABS: BLOOD UREA NITROGEN 9 MG/DL (9-23); CALCIUM LEVEL 8.4 MG/DL (8.3-10.6); CARBON DIOXIDE LEVEL 28 MMOL/L (20-31); CHLORIDE LEVEL 103 MMOL/L (98-107); CREATININE FOR GFR 0.62 MG/DL (0.55-1.30); GLOMERULAR FILTRATION RATE > 60.0 (>39); GLUCOSE, FASTING 101 MG/DL (74-106); POTASSIUM SERUM 4.2 MMOL/L (3.5-5.1); SODIUM LEVEL 136 MMOL/L (136-145)
[2023-04-09 07:15] LABS: HEMATOCRIT 27.2 % (36.0-47.0); HEMOGLOBIN 8.1 g/dl (12.0-15.5)
[2023-04-09] MEDS ORDERED: BISACODYL 5MG TAB PO ONE (08:45)
[2023-04-09 09:33] LABS: IRON (FE) 19 UG/DL (50-170); PERCENT SATURATION 5.1 % (13.2-45.0); TOTAL IRON BINDING CAPACITY 374 UG/DL (250-425)
[2023-04-09 09:35] LABS: FERRITIN 8.2 NG/ML (7.3-270.7)
[2023-04-09] MEDS ORDERED: GOLYTELY SOLN 4000 ML BTL PO ONE (10:00)
[2023-04-09] MEDS ORDERED: FERRIC CARBOXYMALTOSE INJ 750 MG, VIAL MATE ADAPTER 1 EACH in NS 250 ML IV ONE (10:05)
[2023-04-09] MEDS ORDERED: METOPROLOL TART 50 MG TAB PO SCH (12:00)
[2023-04-09 14:30] LABS: HEMATOCRIT 32.2 % (36.0-47.0); HEMOGLOBIN 9.4 g/dl (12.0-15.5)
[2023-04-09] MEDS ORDERED: propofoL 200 MG/20 ML VIAL As Ordered ONE ×2 (15:05→15:30)
[2023-04-09] MEDS ORDERED: LIDOCAINE 2% 100MG/5ML SDV (FOR ANES.) As Ordered ONE (15:08)
[2023-04-09] MEDS ORDERED: SIMETHICONE 40MG/0.6ML DROPS 30ML As Ordered ONE (15:35)
[2023-04-09] MEDS ORDERED: MIRA3350 PO (16:11)
[2023-04-09] MEDS ORDERED: DOCU100C16 PO (16:11)
[2023-04-09] MEDS ORDERED: FERR325T3 PO (16:11)
== END 2023-04-09 19:20 | disposition home or self-care (01) | DRG 348 ==
LOC: M ED 19:26 → M ED INP 23:52 → M PCU 04-09 03:17
PROVIDERS: ADMIT Internal Medicine; ATTEND Internal Medicine
PROC: 06L Lower Veins, Occlusion (ICD-10-PCS; principal; 2023-04-09 18:00)
DX: K64.2 Third degree hemorrhoids (principal); Z68.43 Body mass index [BMI] 50.0-59.9, adult; D62 Acute posthemorrhagic anemia; K57.30 Diverticulosis of large intestine without perforation or abscess without bleeding; J45.909 Unspecified asthma, uncomplicated; D50.9 Iron deficiency anemia, unspecified; Z79.899 Other long term (current) drug therapy; Z88.2 Allergy status to sulfonamides; Z88.8 Allergy status to other drugs, medicaments and biological substances; Z91.012 Allergy to eggs; E66.9 Obesity, unspecified; F41.9 Anxiety disorder, unspecified; I10 Essential (primary) hypertension

== ENCOUNTER → 2023-04-20 | Outpatient (CLI) | payer MEDICARE, BC, OTHER ==
[~2023-04-20] MED LIST changes: +DOCU100C16 PO; +FERR325T3 PO; +MIRA3350 PO; +PREP1SUP2 PR
[2023-04-20 15:07] LABS: HEMATOCRIT 30.5 % (36.0-47.0); HEMOGLOBIN 8.9 g/dl (12.0-15.5); MEAN CORPUSCULAR HEMOGLOBIN 26.3 pg (27.0-33.0); MEAN CORPUSCULAR HGB CONC 29.2 g/dl (32.0-36.5); MEAN CORPUSCULAR VOLUME 90.2 fl (80.0-96.0); PLATELET COUNT, AUTOMATED 209 10^3/uL (150-450); RED BLOOD COUNT 3.38 10^6/uL (4.00-5.40); WHITE BLOOD COUNT 7.5 10^3/uL (4.0-10.0)
== END ==
LOC: M LAB 14:30
PROVIDERS: ATTEND Surgery
DX: D64.9 Anemia, unspecified (principal); K29.61 Other gastritis with bleeding

== ENCOUNTER 2024-04-13 20:02 | Emergency (ER) | payer MEDICARE, BC ==
[2024-04-13 20:07] VITALS: TEMP 97
[2024-04-13 20:56] LABS: BASO # 0.1 10^3/uL (0.0-0.2); BASO % 1.1 % (0.0-1.0); EOS # 0.2 10^3/uL (0.0-0.5); EOS % 3.6 % (0.0-3.0); HEMOGLOBIN 11.5 g/dl (12.0-15.5); LYMPH # 1.3 10^3/uL (1.5-5.0); LYMPH % 19.2 % (24.0-44.0); MEAN CORPUSCULAR HEMOGLOBIN 26.6 pg (27.0-33.0); MEAN CORPUSCULAR HGB CONC 30.3 g/dl (32.0-36.5); MONO # 0.6 10^3/uL (0.0-0.8); MONO % 8.9 % (2.0-8.0); NEUTROPHILS # 4.4 10^3/uL (1.5-8.5); NEUTROPHILS % 66.7 % (36.0-66.0); PLATELET COUNT, AUTOMATED 256 10^3/uL (150-450); RED BLOOD COUNT 4.32 10^6/uL (4.00-5.40); WHITE BLOOD COUNT 6.6 10^3/uL (4.0-10.0)
[2024-04-13 21:24] LABS: LIPASE 35 U/L (12-53)
[2024-04-13 21:26] LABS: ALBUMIN 3.2 G/DL (3.2-5.2); ALKALINE PHOSPHATASE 83 U/L (35-104); ALT/SGPT 12 U/L (7.0-40); AST/SGOT 14 U/L (<34); BILIRUBIN,DIRECT 0.2 MG/DL (<0.4); BILIRUBIN,TOTAL 0.5 MG/DL (0.3-1.2); BLOOD UREA NITROGEN 13 MG/DL (9-23); CALCIUM LEVEL 9.1 MG/DL (8.3-10.6); CARBON DIOXIDE LEVEL 27 MMOL/L (20-31); CHLORIDE LEVEL 102 MMOL/L (98-107); CREATININE FOR GFR 0.68 MG/DL (0.55-1.30); GLOMERULAR FILTRATION RATE > 60.0 (>39); GLUCOSE, FASTING 124 MG/DL (74-106); POTASSIUM SERUM 4.4 MMOL/L (3.5-5.1); SODIUM LEVEL 137 MMOL/L (136-145); TOTAL PROTEIN 6.9 G/DL (5.7-8.2)
[2024-04-14 03:30] VITALS: O2SAT 93
[2024-04-14 03:33] VITALS: BP 141/74
== END 2024-04-14 06:30 | disposition home or self-care (01) ==
LOC: M ED 20:02
DX: N93.9 Abnormal uterine and vaginal bleeding, unspecified (principal); I10 Essential (primary) hypertension; Z88.2 Allergy status to sulfonamides; Z88.8 Allergy status to other drugs, medicaments and biological substances; Z91.012 Allergy to eggs; Z79.51 Long term (current) use of inhaled steroids; Z79.899 Other long term (current) drug therapy

== ENCOUNTER → 2024-04-15 | Outpatient (REF) | payer MEDICARE, BC | LOC: M PLALAB 13:46 | PROVIDERS: ATTEND Obstetrics & Gynecology | DX: N95.0 Postmenopausal bleeding (principal) ==

== ENCOUNTER → 2024-05-09 | Outpatient (CLI) | payer MEDICARE, BC | LOC: M EKG 16:59 | PROVIDERS: ATTEND Family Medicine | DX: Z01.818 Encounter for other preprocedural examination (principal) ==

== ENCOUNTER 2025-01-19 16:42 | Observation (INO) | payer MEDICARE, BC ==
[~2025-01-19] VITALS: Ht 180.3 cm; Wt 201.8 kg
[2025-01-19] MEDS: ACETAMINOPHEN 500 MG TAB PO ONE (18:25)
[2025-01-19 21:15] LABS: BASO # 0.1 10^3/uL (0.0-0.2); BASO % 0.7 % (0.0-1.0); EOS # 0.2 10^3/uL (0.0-0.5); EOS % 2.2 % (0.0-3.0); LYMPH # 1.5 10^3/uL (1.5-5.0); LYMPH % 18.3 % (24.0-44.0); MONO # 0.5 10^3/uL (0.0-0.8); MONO % 6.4 % (2.0-8.0); NEUTROPHILS # 6.0 10^3/uL (1.5-8.5); NEUTROPHILS % 72.2 % (36.0-66.0); PLATELET COUNT, AUTOMATED 262 10^3/uL (150-450)
[2025-01-19 21:21] LABS: ERYTHROCYTE SEDIMENTATION RATE 115 mm/hr (0-30)
[2025-01-19] MEDS ORDERED: ISOVUE-370 76% 100 ML VIAL As Ordered ONE (21:31)
[2025-01-19 21:51] LABS: C REACTIVE PROTEIN QUANTITATIV 1.76 MG/DL (<1.0)
[2025-01-19 21:52] LABS: ALT/SGPT 12 U/L (7.0-40); AST/SGOT 21 U/L (<34); CALCIUM LEVEL 8.8 MG/DL (8.3-10.6); CARBON DIOXIDE LEVEL 28 MMOL/L (20-31); CHLORIDE LEVEL 99 MMOL/L (98-107); CREATININE FOR GFR 0.79 MG/DL (0.55-1.30); GLOMERULAR FILTRATION RATE 78.9 (>39); POTASSIUM SERUM 4.7 MMOL/L (3.5-5.1); SODIUM LEVEL 136 MMOL/L (136-145)
[2025-01-19] MEDS: predniSONE 20 MG TAB PO ONE (23:54)
[2025-01-19] MEDS: KETOROLAC 30 MG/ML 1 ML VIAL IV ONE (23:54)
[2025-01-20] MEDS ORDERED: MAALOX 30 ML SUSP *UDC PO PRN (00:40)
[2025-01-20] MEDS ORDERED: ACETAMINOPHEN 325 MG TAB PO PRN (00:40)
[2025-01-20] MEDS ORDERED: MOM 30 ML SUSPENSION UDC PO PRN (00:40)
[2025-01-20 00:58] LABS: RHEUMATOID FACTOR QUANT < 3.5 IU/ML (<14)
[2025-01-20] MEDS ORDERED: PERCOCET 5MG/325MG TAB PO PRN ×2 (01:05)
[2025-01-20 01:39] VITALS: BP 141/83; TEMP 96.9; O2SAT 92
[2025-01-20 02:19] LABS: INR 1.01
[2025-01-20] MEDS: METHOCARBAMOL 1,000 MG/10 ML VIAL IV ONE (03:05)
[2025-01-20 05:34] VITALS: BP 154/85; TEMP 97.2; O2SAT 91
[2025-01-20] MEDS: KETOROLAC 30 MG/ML 1 ML VIAL IV SCH (05:47)
[2025-01-20] MEDS: OMEPRAZOLE 20MG CAP PO SCH (08:24)
[2025-01-20] MEDS: DOCUSATE SODIUM 100 MG CAPSULE PO SCH (08:25)
[2025-01-20] MEDS: predniSONE 20 MG TAB PO SCH (08:25)
[2025-01-20] MEDS ORDERED: HOME MED LIST COMPLETE! XX SCH (08:30)
[2025-01-20] MEDS ORDERED: ENOXAPARIN 40 MG/0.4 ML SYRINGE (J1650 PER 10MG) SC SCH (09:00)
[2025-01-20 10:33] VITALS: BP 124/79; TEMP 97.3; O2SAT 91
[2025-01-20] MEDS: ENOXAPARIN 60 MG/0.6 ML SYRINGE (J1650 PER 10MG) SC SCH (10:59)
[2025-01-20 14:45] VITALS: BP 117/78; TEMP 97.5; O2SAT 92
[2025-01-20 20:28] VITALS: BP 128/86; TEMP 97.3; O2SAT 96
[2025-01-21 05:35] VITALS: BP 130/75; TEMP 97.2; O2SAT 95
[2025-01-21 07:32] LABS: BASO # 0.0 10^3/uL (0.0-0.2); BASO % 0.2 % (0.0-1.0); EOS # 0.0 10^3/uL (0.0-0.5); EOS % 0.1 % (0.0-3.0); LYMPH # 1.2 10^3/uL (1.5-5.0); LYMPH % 15.2 % (24.0-44.0); MONO # 0.6 10^3/uL (0.0-0.8); MONO % 7.6 % (2.0-8.0); NEUTROPHILS # 6.2 10^3/uL (1.5-8.5); NEUTROPHILS % 76.7 % (36.0-66.0); PLATELET COUNT, AUTOMATED 286 10^3/uL (150-450)
[2025-01-21 08:12] LABS: C REACTIVE PROTEIN QUANTITATIV 1.22 MG/DL (<1.0)
[2025-01-21 08:13] LABS: CALCIUM LEVEL 8.9 MG/DL (8.3-10.6); CARBON DIOXIDE LEVEL 27.0 MMOL/L (20-31); CHLORIDE LEVEL 98.0 MMOL/L (98-107); CREATININE FOR GFR 0.77 MG/DL (0.55-1.30); GLOMERULAR FILTRATION RATE 81.4 (>39); POTASSIUM SERUM 4.8 MMOL/L (3.5-5.1); SODIUM LEVEL 135.0 MMOL/L (136-145)
[2025-01-21] MEDS ORDERED: PRED20TA PO (10:41)
[2025-01-21] MEDS ORDERED: METH-1165 PO (10:41)
== END 2025-01-21 12:40 | disposition home or self-care (01) ==
LOC: EDBD 16:42 → M ED 16:42 → M ED INP 16:43 → M MS5PR 01-20 01:21
PROVIDERS: ADMIT Student in an Organized Health Care Education/Training Program; ATTEND Student in an Organized Health Care Education/Training Program
DX: M17.12 Unilateral primary osteoarthritis, left knee (principal); R26.2 Difficulty in walking, not elsewhere classified; M25.462 Effusion, left knee; M79.89 Other specified soft tissue disorders; R70.0 Elevated erythrocyte sedimentation rate; I10 Essential (primary) hypertension; J45.909 Unspecified asthma, uncomplicated; E66.01 Morbid (severe) obesity due to excess calories; K59.00 Constipation, unspecified; K59.39 Other megacolon; K21.9 Gastro-esophageal reflux disease without esophagitis; R42 Dizziness and giddiness; D64.9 Anemia, unspecified; R01.1 Cardiac murmur, unspecified; Z90.79 Acquired absence of other genital organ(s); Z85.41 Personal history of malignant neoplasm of cervix uteri; Z91.012 Allergy to eggs; Z91.018 Allergy to other foods; Z88.2 Allergy status to sulfonamides; Z79.899 Other long term (current) drug therapy
CPT/HCPCS: 36415; 73564; 73701; 80047; 80048; 80076; 83880; 84145; 84550; 85025; 85610; 85652; 85730; 86038; 86140; 86200; 86431; 96372; 96374; 96375; 96376; 97116; 97161; 97530; 99284; G0378; J1650; J1885; J2800; J3360; J7512; Q9967